=== PATIENT | female | born 1995 ===

== ENCOUNTER 2024-09-03 14:16 | Outpatient (CLI) | payer OTHER, SELFPAY | END 2024-09-03 14:17 | disposition home or self-care (01) | PROVIDERS: Visit Provider Physician Assistant Medical | DX: E28.2 Polycystic ovarian syndrome (principal); E66.01 Morbid (severe) obesity due to excess calories; F41.1 Generalized anxiety disorder | CPT/HCPCS: 80053; 80061; 84443 ==